=== PATIENT | male | born 1970 | race African-American/Black ===

== ENCOUNTER 2017-10-03 20:40 | Emergency (ER) | payer BC ==
[~2017-10-03] VITALS: Ht 180.3 cm; Wt 90.7 kg
[~2017-10-03 20:40] MED LIST: IBUPROFEN600 MG ORAL; NORCO 10-325 T1 EACH ORAL
[2017-10-03 20:54] VITALS: BP 165/88
--- NOTE | 2017-10-03 21:20 | Emergency Room Report ---
History of Present Illness General Chief Complaint: Palpitations Source: Patient Present Illness HPI Patient presents with palpitations that started this morning Patient reports on 10:00 in the morning is when he started feeling the palpitations feeling Off-and-on since then until approximately 3 when it started to improve Patient also complains of a tightness across the upper chest Denies any shortness of breath at this time however did have some sensation with pain Denies any vomiting or diarrhea denies any fevers or chills patient has been on antibiotics for about 7 days for a stye in the left eye along with [place] for pain medicine and feels that the medication could potentially lead to some discomfort Allergies: Coded Allergies: No Known Allergies (Unverified , 02/05/16) Patient History Past Medical History: see triage record Past Surgical History: none Pertinent Family History: none Reviewed Nursing Documentation: PMH: Agreed, PSxH: Agreed Nursing Documentation-PMH Past Medical History: No Stated History Review of Systems All Other Systems: negative except mentioned in HPI Physical Exam Vital Signs Date Time Temp Pulse Resp B/P (MAP) Pulse Ox O2 Delivery O2 Flow Rate FiO2 10/03/17 20:54 97.3 52 16 165/88 99 Room Air Sp02 EP Interpretation: reviewed, normal General Appearance: well appearing, no apparent distress Head: normocephalic, atraumatic Eyes: bilateral eye PERRL, bilateral eye EOMI ENT: hearing grossly normal, normal pharynx, TMs + canals normal, uvula midline Neck: full range of motion, supple, no meningismus, no bony tend Respiratory: lungs clear, normal breath sounds, no rhonchi, no respiratory distress, no retraction, no accessory muscle use Cardiovascular #1: normal peripheral pulses, regular rate, rhythm, no edema, no gallop, no JVD, no murmur Gastrointestinal: normal bowel sounds, non tender, soft, no mass, no organomegaly, non-distended, no guarding, no hernia, no pulsatile mass, no rebound Genitourinary: no CVA tenderness Musculoskeletal: normal inspection Neurologic: oriented x3, responsive, 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, motor strength/ tone normal, sensory intact Psychiatric: mood/affect normal Skin: normal color, no rash, warm/dry, palpation normal Lymphatic: normal inspection, no adenopathy Medical Decision Making Diagnostic Impression: Primary Impression: Palpitations ER Course Patient is a fairly complex patient with multiple differential to consideration including but not limited to cardiac cardiopulmonary and vascular emergencies Patient's blood work reveals elevated total CK Mild elevated kidney function Patient is also amphetamine positive Patient is otherwise able to tolerate oral intake Pain-free at this time has been pain-free since 3:00 and is stable for close followup Labs Test 10/03/17 21:39 White Blood Count 8.5 K/UL (4.8-10.8) Red Blood Count 5.07 M/UL (4.70-6.10) Hemoglobin 13.7 G/DL (14.2-18.0) Hematocrit 43.2 % (42.0-52.0) Mean Corpuscular Volume 85 FL (80-99) Mean Corpuscular Hemoglobin 27.1 PG (27.0-31.0) Mean Corpuscular Hemoglobin Concent 31.8 G/DL (32.0-36.0) Red Cell Distribution Width 13.8 % (11.6-14.8) Platelet Count 274 K/UL (150-450) Mean Platelet Volume 6.1 FL (6.5-10.1) Neutrophils (%) (Auto) 71.9 % (45.0-75.0) Lymphocytes (%) (Auto) 17.9 % (20.0-45.0) Monocytes (%) (Auto) 7.8 % (1.0-10.0) Eosinophils (%) (Auto) 1.7 % (0.0-3.0) Basophils (%) (Auto) 0.7 % (0.0-2.0) Sodium Level 142 MMOL/L (136-145) Potassium Level 3.8 MMOL/L (3.5-5.1) Chloride Level 107 MMOL/L (98-107) Carbon Dioxide Level 29 MMOL/L (21-32) Anion Gap 6 mmol/L (5-15) Blood Urea Nitrogen 24 mg/dL (7-18) Creatinine 1.4 MG/DL (0.55-1.30) Estimat Glomerular Filtration Rate > 60 mL/min (>60) Glucose Level 106 MG/DL (74-106) Calcium Level 8.8 MG/DL (8.5-10.1) Total Bilirubin 0.2 MG/DL (0.2-1.0) Aspartate Amino Transf (AST/SGOT) 40 U/L (15-37) Alanine Aminotransferase (ALT/SGPT) 70 U/L (12-78) Alkaline Phosphatase 41 U/L (46-116) Total Creatine Kinase 1413 U/L (26-308) Creatine Kinase MB 3.5 NG/ML (0.0-3.6) Creatine Kinase MB Relative Index 0.2 Troponin I 0.000 ng/mL (0.000-0.056) Total Protein 6.8 G/DL (6.4-8.2) Albumin 3.4 G/DL (3.4-5.0) Globulin 3.4 g/dL Albumin/Globulin Ratio 1.0 (1.0-2.7) Rhythm Strip Diag. Results EP Interpretation: yes Rate: 56 Rhythm: NSR, no PVC's, no ectopy Chest X-Ray Diagnostic Results Chest X-Ray Diagnostic Results : Chest X-Ray Ordered: Yes # of Views/Limited/Complete: 1 View Indication: Chest Pain EP Interpretation: Yes Interpretation: no consolidation, no effusion, no pneumothorax Impression: No acute disease Electronically Signed by: Marcio Chaves DO Last Vital Signs Date Time Temp Pulse Resp B/P (MAP) Pulse Ox O2 Delivery O2 Flow Rate FiO2 10/03/17 20:54 97.3 56 16 165/88 99 Room Air Status: improved Disposition: HOME, SELF-CARE Condition: Improved Referrals: NOT CHOSEN IPA/MD,REFERRING (PCP) Additional Instructions: Patient is provided with the discharge instructions notified to follow up with primary doctor in the next 2-3 days otherwise return to the er with any worsening symptoms. Please note that this report is being documented using [employer] technology. This can lead to erroneous entry secondary to incorrect interpretation by the dictating instrument. MARCIO CHAVES D.O. Oct 03, 2017 21:20
[2017-10-03 22:02] LABS: BASOPHILS % (AUTO) 0.7 % (0.0-2.0); EOSINOPHILS % (AUTO) 1.7 % (0.0-3.0); LYMPHOCYTES % (AUTO) 17.9 % (20.0-45.0); MEAN CORPUSCULAR HEMOGLOBIN 27.1 PG (27.0-31.0); MEAN CORPUSCULAR HGB CONC 31.8 G/DL (32.0-36.0); MEAN CORPUSCULAR VOLUME 85 FL (80-99); MEAN PLATELET VOLUME 6.1 FL (6.5-10.1); MONOCYTES % (AUTO) 7.8 % (1.0-10.0); NEUTROPHILS % (AUTO) 71.9 % (45.0-75.0); PLATELET COUNT 274 K/UL (150-450); RED BLOOD COUNT 5.07 M/UL (4.70-6.10); RED CELL DISTRIBUTION WIDTH 13.8 % (11.6-14.8); WHITE BLOOD COUNT 8.5 K/UL (4.8-10.8)
[2017-10-03 22:04] LABS: ANION GAP 6 mmol/L (5-15); CALCIUM 8.8 MG/DL (8.5-10.1); CARBON DIOXIDE 29 MMOL/L (21-32); CHLORIDE 107 MMOL/L (98-107); CREATININE 1.4 MG/DL (0.55-1.30); GLOMERULAR FILTRATION RATE > 60 mL/min (>60); POTASSIUM 3.8 MMOL/L (3.5-5.1); SODIUM 142 MMOL/L (136-145)
[2017-10-03 22:18] LABS: ALANINE AMINOTRANSFERASE 70 U/L (12-78); ASPARTATE AMINO TRANSFERASE 40 U/L (15-37); CKMB 3.5 NG/ML (0.0-3.6); TOTAL PROTEIN 6.8 G/DL (6.4-8.2)
[2017-10-03 22:54] VITALS: BP 155/78
[2017-10-03 23:00] VITALS: BP 154/78
== END 2017-10-03 23:00 | disposition home or self-care (01) ==
LOC: EMR 21:18
DX: R00.2 Palpitations (principal); R94.4 Abnormal results of kidney function studies; F15.10 Other stimulant abuse, uncomplicated
CPT/HCPCS: 36415; 71010; 80053; 82550; 82553; 84484; 85025; 93005; 99283

== ENCOUNTER 2018-03-14 01:14 | Emergency (ER) | payer BC ==
[~2018-03-14] VITALS: Ht 180.3 cm; Wt 83.9 kg
[2018-03-14] MEDS ORDERED: NKM (01:23)
[2018-03-14 01:25] VITALS: BP 146/90
[2018-03-14 01:41] VITALS: BP 0/0
[2018-03-14] MEDS ORDERED: HYDROcodone/Acetamin 10/325 tab ORAL ONE (02:15)
--- NOTE | 2018-03-14 03:56 | Emergency Room Report ---
History of Present Illness General Chief Complaint: Upper Extremity Injury Source: Patient Present Illness HPI Patient presents with trauma to the left elbow Reports that last night around 9:00 while he was playing basketball he hit the left elbow on the garage This is approximately 24 hours ago Reports that the pain is off-and-on worse with touch Denies any cuts or laceration denies any shoulder pain Allergies: Coded Allergies: No Known Allergies (Unverified , 03/14/18) Patient History Past Medical History: see triage record Pertinent Family History: none Reviewed Nursing Documentation: PMH: Agreed; PSxH: Agreed Nursing Documentation-PMH Past Medical History: No Stated History Review of Systems All Other Systems: negative except mentioned in HPI Physical Exam Vital Signs Date Time Temp Pulse Resp B/P (MAP) Pulse Ox O2 Delivery O2 Flow Rate FiO2 03/14/18 01:18 98.1 66 16 146/90 95 Room Air 98.1 Sp02 EP Interpretation: reviewed, normal General Appearance: well appearing, no apparent distress Head: normocephalic, atraumatic Eyes: bilateral eye PERRL, bilateral eye EOMI ENT: normal pharynx, no angioedema Neck: full range of motion, supple Respiratory: chest non-tender, lungs clear Cardiovascular #1: regular rate, rhythm Musculoskeletal: other - Tender on palpation of the left elbow on the lateral malleolus region no obvious ecchymosis or bruising neurovascularly intact, Neurologic: alert, oriented x3, responsive, supervisor pre wave III-XII nml as tested Skin: normal color, no rash Lymphatic: no adenopathy Medical Decision Making Diagnostic Impression: Primary Impression: elbow contusion ER Course Patient's imaging study does not reveal any obvious acute fractures Patient has a shoulder sling applied This is not splinting the area Patient tolerated this well And is stable for close follow-up Other X-Ray Diagnostic Results Other X-Ray Diagnostic Results : X-Ray ordered: Left elbow # of Views/Limited Vs Complete: 3 View Indication: Pain EP Interpretation: Yes Interpretation: no dislocation, no soft tissue swelling, no fractures Impression: No acute disease Electronically Signed by: Marcio Hernadez DO Last Vital Signs Date Time Temp Pulse Resp B/P (MAP) Pulse Ox O2 Delivery O2 Flow Rate FiO2 03/14/18 02:23 98.1 03/14/18 01:18 66 16 146/90 95 Room Air Status: improved Disposition: HOME, SELF-CARE Condition: Stable Referrals: NOT CHOSEN IPA/MD,REFERRING (PCP) Patient Instructions: Contusion-SportsMed Additional Instructions: Patient is provided with the discharge instructions notified to follow up with primary doctor in the next 2-3 days otherwise return to the er with any worsening symptoms. Please note that this report is being documented using DRAGON technology. This can lead to erroneous entry secondary to incorrect interpretation by the dictating instrument. Marcio Hernadez DO March 14, 2018 03:56
--- NOTE | 2018-03-14 12:13 | Diagnostic Imaging Report ---
Indications:Reason For Exam: PAIN Technique: Three or 4 views of the left elbow Comparison: None Findings: There are degenerative proliferative changes of the distal humerus. No definite joint effusion. No acute fractures. No dislocations. The joint spaces are preserved Impression: Degenerative changes. No acute bony trauma
== END 2018-03-14 01:41 | disposition home or self-care (01) ==
LOC: EMR 01:33
DX: S50.02XA Contusion of left elbow, initial encounter (principal); Y93.67 Activity, basketball; Y92.9 Unspecified place or not applicable
CPT/HCPCS: 99283

== ENCOUNTER 2018-04-16 23:08 | Emergency (ER) | payer BC ==
[~2018-04-16] VITALS: Ht 180.3 cm; Wt 90.7 kg
[~2018-04-16 23:08] MED LIST changes: +NKM
[2018-04-16 23:23] VITALS: BP 142/75
[2018-04-16] MEDS ORDERED: Norco 5mg/325mg tab ORAL ONE (23:45)
[2018-04-17] MEDS ORDERED: NORCO 5-325 TA1 EACH ORAL (00:02)
[2018-04-17] MEDS ORDERED: IBUPROFEN600 MG ORAL (00:02)
[2018-04-17 00:10] VITALS: BP 142/75
--- NOTE | 2018-04-17 02:24 | Emergency Room Report ---
History of Present Illness General Chief Complaint: Pain Source: Patient Present Illness HPI 48-year-old male presents ED for evaluation of right knee pain. Started approximately one week ago. States he was lifting with legs at the gym and then went to work. Started feeling the pain at work the next day. 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 Does lots of walking. Pain is throbbing, 10 out of 10, nonradiating. no other aggravating relieving factors. Denies any other associated symptoms Allergies: Coded Allergies: No Known Allergies (Unverified , 03/14/18) Patient History Past Medical History: none Past Surgical History: none Pertinent Family History: none Social History: Denies: smoking, alcohol use, drug use Immunizations: UTD Reviewed Nursing Documentation: PMH: Agreed; PSxH: Agreed Nursing Documentation-PMH Past Medical History: No Stated History Review of Systems All Other Systems: negative except mentioned in HPI Physical Exam Vital Signs Date Time Temp Pulse Resp B/P (MAP) Pulse Ox O2 Delivery O2 Flow Rate FiO2 04/16/18 23:14 98.0 71 16 142/75 98 Room Air 98.1 Sp02 EP Interpretation: reviewed, normal General Appearance: no apparent distress, alert, GCS 15, non-toxic Head: normocephalic Eyes: bilateral eye normal inspection, bilateral eye PERRL ENT: normal ENT inspection Neck: normal inspection Respiratory: normal inspection Cardiovascular #1: normal inspection Gastrointestinal: normal inspection Rectal: deferred Genitourinary: no CVA tenderness Musculoskeletal: tender - R knee Neurologic: alert, oriented x3, responsive, motor strength/tone normal, sensory intact, speech normal Psychiatric: normal inspection Skin: normal inspection Lymphatic: normal inspection Procedures Splinting Splinting : Consent: Verbal Pre-Made Type: CORINNE wrap Pre-Proc Neuro Vasc Exam: normal Post-Proc Neuro Vasc Exam: normal Patient Tolerated: Well Complications: None Medical Decision Making Diagnostic Impression: Primary Impression: Knee pain Qualified Codes: M25.561 - Pain in right knee ER Course Hospital Course 48-year-old M presents to ED complaining of R knee pain Differential diagnoses include: Fracture, dislocation, sprain, contusion Clinical course Patient placed on stretcher. After initial history and physical, I ordered pain medications and Xrays of R knee Xrays prelim read shows no acute fracture/dislocation. placed in corinne wrap Diagnosis - knee pain Stable and discharged to home with prescription for Motrin. apply ice, keep elevated. weight bear as tolerated. Followup with PMD. Return to ED if symptoms recur or worsen Other X-Ray Diagnostic Results Other X-Ray Diagnostic Results : # of Views/Limited Vs Complete: 3 View Indication: Pain EP Interpretation: Yes Interpretation: no dislocation, no soft tissue swelling, no fractures Impression: No acute disease Electronically Signed by: Electronically signed by Kiel Dominguez MD Last Vital Signs Date Time Temp Pulse Resp B/P (MAP) Pulse Ox O2 Delivery O2 Flow Rate FiO2 04/17/18 00:10 98.1 71 16 142/75 98 Room Air 98.1 Status: improved Disposition: HOME, SELF-CARE Condition: Stable Scripts Hydrocodone Bit/Acetaminophen 5-325* (NORCO 5-325*) 1 Each Tablet 1 TAB ORAL Q6H PRN for For Pain, #10 TAB 0 Refills Prov: Kiel Dominguez MD 04/17/18 Ibuprofen* (MOTRIN*) 600 Mg Tablet 600 MG ORAL Q8H PRN for For Pain, #30 TAB 0 Refills Prov: Kiel Dominguez MD 04/17/18 Departure Forms: Return to Work Return to Work Date: Apr 19, 2018 Work Restrictions: No Heavy Lifting Patient Instructions: Knee Pain, [id number] Kiel Dominguez MD Apr 17, 2018 02:24
--- NOTE | 2018-04-17 18:33 | Diagnostic Imaging Report ---
Indication: Pain Technique: XRAY Knee 3v R Comparison: None. Correlation made to previous of the right leg 10/22/2016 Findings: Remote/healed fracture of the proximal fibula. No acute fracture identified. There is mild degenerative change with subchondral sclerosis. Question trace suprapatellar joint effusion. No radiopaque foreign body identified. There is some atherosclerotic vascular calcifications. IMPRESSION: No evidence of acute fracture or dislocation. Remote/healed proximal fibular fracture.
== END 2018-04-17 00:10 | disposition home or self-care (01) ==
LOC: EMR 23:23
DX: M25.561 Pain in right knee (principal)
CPT/HCPCS: 99284

== ENCOUNTER 2018-06-09 08:14 | Emergency (ER) | payer BC ==
[~2018-06-09] VITALS: Ht 180.3 cm; Wt 81.6 kg
[~2018-06-09 08:14] MED LIST changes: +NORCO 5-325 TA1 EACH ORAL
[2018-06-09 08:26] VITALS: BP 166/101
--- NOTE | 2018-06-09 08:44 | Emergency Room Report ---
History of Present Illness General Chief Complaint: Pain Source: Patient Present Illness HPI Mr. Richardson is pleasant healthy 48-year-old male who injured his left lower rib cage 10 days ago while attempting to hop a wooden fence. He fell onto the top of the fence. Consequently he jammed his left lower rib cage. Pain is worse at theleft lower rib cage midaxillary region. Hurts when he sneezes. Hurts when he takes a deep breath. He takes [place] 10 mg tablets twice a day for chronic pain in his left lower extremity after orthopedic surgery 15 years ago. He has been under pain management for one year. He does not have any more tablets of [place]. His next prescription will be refilled in 10 days on June 19. Mr. Richardson did not attempt over the counter medication such as ibuprofen. 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 Lives with and 2 children Reviewed Nursing Documentation: PMH: Agreed; PSxH: Agreed Nursing Documentation-PMH Past Medical History: No Stated History Review of Systems Constitutional: Denies: fever, malaise Respiratory: Denies: cough Cardiovascular: Denies: palpitations Musculoskeletal: Denies: back pain Physical Exam Vital Signs Date Time Temp Pulse Resp B/P (MAP) Pulse Ox O2 Delivery O2 Flow Rate FiO2 06/09/18 08:21 98.7 72 20 166/101 99 Room Air 98.8 Sp02 EP Interpretation: reviewed, normal General Appearance: no apparent distress, alert, GCS 15, non-toxic, other - ttransfers and ambulates without discomfort Head: normocephalic, atraumatic Eyes: bilateral eye normal inspection ENT: hearing grossly normal, normal pharynx, no angioedema, normal voice Neck: full range of motion, supple/symm/no masses Respiratory: lungs clear, normal breath sounds, speaking full sentences, other - chest tender midaxillary region of lower rib cage no hematoma or step-off no crepitus Cardiovascular #1: regular rate, rhythm Cardiovascular #2: 2+ carotid (R), 2+ carotid (L), 2+ radial (R), 2+ radial (L) , 2+ dorsalis pedis (R), 2+ dorsalis pedis (L) Gastrointestinal: non tender, soft, non-distended, no guarding, no rebound Musculoskeletal: gait/station normal, normal range of motion Neurologic: alert, oriented x3, responsive, motor strength/tone normal, sensory intact, speech normal Psychiatric: judgement/insight normal, memory normal, mood/affect normal Skin: normal color, no rash, warm/dry, well hydrated Medical Decision Making ER Course Mr. Richardson presents with chest wall contusion after blunt trauma. No evidence of fracture. No evidence of pneumonia. he pleasantly declined ibuprofen in the ED. I was unable to provide opioid medication since patient is driving. I recommended [id number] ibuprofen and heat. He has been able to tolerate pain for the past 10 days. I recommended that he contacts his pain management physician. Chest X-Ray Diagnostic Results Chest X-Ray Diagnostic Results : Chest X-Ray Ordered: Yes # of Views/Limited/Complete: Complete Indication: Other - rib cage injury EP Interpretation: Yes PA Xray: Interpretation reviewed Interpretation: no acute cardiopulmonary disease Impression: Other - no fracture and no pneumothorax or infiltrate Electronically Signed by: This image has been electronically signed by Dr. Tamiko Martin Last Vital Signs Date Time Temp Pulse Resp B/P (MAP) Pulse Ox O2 Delivery O2 Flow Rate FiO2 06/09/18 08:26 98.8 72 20 166/101 99 Room Air 98.8 Referrals: NOT CHOSEN IPA/,REFERRING (PCP) TAMIKO MARTIN Jun 09, 2018 08:44
[2018-06-09 10:31] VITALS: BP 166/101
--- NOTE | 2018-06-09 11:39 | Diagnostic Imaging Report ---
Indication: Mid left anterior rib pain status post fall Technique: One view of the chest, 4 views of the left ribs Comparison: Chest radiograph dated 10/03/2017 Findings: The lungs and pleural space are clear. The heart size is normal. No pneumothorax. No evidence of rib fracture. Findings on chest radiograph are unchanged Impression: Negative
== END 2018-06-09 10:33 | disposition home or self-care (01) ==
LOC: EMR 08:32
DX: S20.212A Contusion of left front wall of thorax, initial encounter (principal); W17.89XA Other fall from one level to another, initial encounter; Y93.39 Activity, other involving climbing, rappelling and jumping off; Y92.89 Other specified places as the place of occurrence of the external cause
CPT/HCPCS: 99283